=== PATIENT | female | born 1955 | race Caucasian/White ===

== ENCOUNTER 2019-10-02 12:14 | Emergency (ER) | payer OTHER ==
[2019-10-02 13:02] VITALS: BP 139/90
--- NOTE | 2019-10-02 13:15 | UC ---
Skin Complaint HPI - HPI Summary HPI Summary: Patient is a 64yo female presenting with "possible shingles." Patient states she woke up 2 days ago with rash on her R forehead. States she "figured it was shingles but knew there was not much to do for shingles." States that she woke up today to find the rash has spread to around her R eye which concerned her. She notes rash is painful but tolerable. Denies vision changes. Notes tearing and redness of R eye. Denies L eye symptoms. Denies having shingles in the past. - History of Current Complaint Time Seen by Provider: 10/02/19 12:29 Stated Complaint: POSSIBLE SHINGLES Hx Obtained From: Patient Onset/Duration: Gradual Onset, Lasting Days Current Severity: Mild Pain Intensity: 3 Pain Scale Used: 0-10 Numeric - Allergy/Home Medications Allergies/Adverse Reactions: Allergies Allergy/AdvReac Type Severity Reaction Status Date / Time No Known Allergies Allergy Verified 10/02/19 13:02 PMH/Surg Hx/FS Hx/Imm Hx Previously Healthy: Yes - Surgical History Surgical History: None - Family History Known Family History: Positive: Non-Contributory - Social History Alcohol Use: None Substance Use Type: None Smoking Status (MU): Never Smoked Tobacco Review of Systems All Other Systems Reviewed And Are Negative: No Constitutional: Positive: Negative. Negative: Fever, Chills Skin: Positive: Rash - red, painful rash R forehead and periorbital R eye Eyes: Positive: Eye Redness - right. Negative: Blurred Vision, Diplopia, Drainage, Photophobia Respiratory: Positive: Negative Cardiovascular: Positive: Negative Gastrointestinal: Positive: Negative Musculoskeletal: Positive: Negative Neurological: Positive: Headache. Negative: Paresthesia, Numbness Physical Exam Triage Information Reviewed: Yes Appearance: Well-Appearing, No Pain Distress, Well-Nourished Vital Signs: Initial Vital Signs Temp 97.8 F 10/02/19 12:59 Pulse 78 10/02/19 12:59 Resp 16 10/02/19 12:59 BP 139/90 10/02/19 12:59 Pulse Ox 99 10/02/19 12:59 Vital Signs Reviewed: Yes Eyes: Positive: Conjunctiva Inflamed - right, Other: - PERRLA. EOM intact. Negative: Discharge ENT: Positive: Hearing grossly normal Neck exam: Normal Neck: Positive: Supple, Nontender, No Lymphadenopathy Respiratory Exam: Normal Respiratory: Positive: Lungs clear, Normal breath sounds, No respiratory distress Cardiovascular Exam: Normal Cardiovascular: Positive: RRR Neurological: Positive: Alert Psychological: Positive: Age Appropriate Behavior Skin: Positive: Rashes - erythematous macular rash noted over R forehead and R upper eyelid. one vesicular lesion noted on forehead and one on eyelid ~3mm each. nondraining. tender to touch. Course/Dx - Course Course Of Treatment: Patient presenting with shingles outbreak on R forehead and R eyelid. Visual acuity WNL. Given such close proximity of rash to eye, there is concern for herpes zoster ophthalmicus. I called [facility] in [place] and scheduled and appointment for the patient for today at 1345. I prescribed valtrex for patient and told her to take as prescribed. Stressed importance of attending appt with Yves and informed her that her eye sight could be compromised. Patient voiced understanding and agreed with treatment plan. - Differential Diagnoses - Skin Complaint Differential Diagnoses: Other - herpes zoster ophthalmicus - Diagnoses Provider Diagnosis: Herpes zoster conjunctivitis, Herpes zoster Discharge ED - Sign-Out/Discharge Documenting (check all that apply): Patient Departure All imaging exams completed and their final reports reviewed: No Studies - Discharge Plan Condition: Stable Disposition: HOME Prescriptions: ValACYclovir (*) [Valtrex 1 GM(*)] 1 gm PO TID #21 tab Patient Education Materials: Shingles (ED) Referrals: Jaswinder Marinelli MD [Medical Doctor] - 10/02/19 1:45 pm Additional Instructions: As discussed, you have shingles. Take Valtrex as prescribed. It is very important that you attend the appointment made for you today at 1: 45pm at [facility]. This is to ensure that your eye is not affected. If the eye is affected, your eyesight could be compromised. - Billing Disposition and Condition Condition: STABLE Disposition: Home
== END 2019-10-02 13:18 | disposition home or self-care (01) ==
LOC: UCEAST 12:14
DX: B02.31 Zoster conjunctivitis (principal)
CPT/HCPCS: 99202; G0463